=== PATIENT | female | born 1990 | race American Indian/Alaskan Native ===

== ENCOUNTER 2017-02-22 18:08 | Emergency (ER) | payer SELFPAY ==
[2017-02-22] MEDS ORDERED: NACL 0.9% 1000 ML 2,000 ML ONE (18:50)
[2017-02-22] MEDS ORDERED: ZOFRAN ONE (18:51)
[2017-02-22] MEDS ORDERED: NACL 0.9% 1000 ML 1,000 ML IV ONE (18:58)
[2017-02-22] MEDS ORDERED: ZOFRAN IV ONE (18:58)
[2017-02-22 19:40] LABS: Basophils % (Auto) 0.5 % (0.0-1.8); Eosinophils % (Auto) 0.1 % (0.0-4.3); Hematocrit 42.9 % (30.3-42.9); Mean Corpuscular HGB Conc 33 % (30-34); Mean Corpuscular Hemoglobin 32 pg (28-32); Mean Corpuscular Volume 98 fl (79-97); Platelet Count 265 K/mm3 (140-440); Red Blood Count 4.39 M/mm3 (3.65-5.03); Red Cell Distribution Width 13.9 % (13.2-15.2); White Blood Count 12.1 K/mm3 (4.5-11.0)
[2017-02-22 19:49] LABS: INR 1.18 (0.87-1.13)
[2017-02-22 19:52] LABS: Anion Gap 20 mmol/L; BUN/Creatinine Ratio 13.33; Blood Urea Nitrogen 8 mg/dL (7-17); Calcium 8.8 mg/dL (8.4-10.2); Carbon Dioxide 22 mmol/L (22-30); Chloride 103.3 mmol/L (98-107); Glucose 96 mg/dL (65-100); Potassium 3.3 mmol/L (3.6-5.0); Sodium 142 mmol/L (137-145)
[2017-02-22 19:59] LABS: Urine Drugs of Abuse Note Disclamer
[2017-02-22 20:12] LABS: Bacteria,Urine 1+ /HPF (Negative); Bilirubin,Urine NEG (Negative); Blood,Urine LG (Negative); Ketones,Urine 80 mg/dL (Negative); Leukocyte Esterase,Urine NEG (Negative); Mucus,Urine 2+ /HPF; Nitrite,Urine NEG (Negative); Urobilinogen,Urine < 2.0 mg/dL (<2.0)
[2017-02-22 20:13] LABS: Protein,Urine >500 mg/dL (Negative)
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
[2017-02-22 22:19] VITALS: BP 118/78
== END 2017-02-22 22:19 | disposition home or self-care (01) ==
LOC: ED 18:08
DX: R11.2 Nausea with vomiting, unspecified (principal)
CPT/HCPCS: 36415; 80048; 80307; 81001; 84703; 85025; 85610; 96361; 96374; 99284; G0480; J2405; J7030; 80320